=== PATIENT | female | born 1980 | race Caucasian/White ===

== ENCOUNTER 2018-11-26 09:47 | Outpatient (REF) | payer BC, SELFPAY ==
--- NOTE | 2018-11-26 08:45 | PAPFT_PTH ---
PATIENT: Darline Oliver LOC: [facility][id number] AGE/SX: 37/F ROOM: RE11/26/[address]: Emiliana Johnston : 1980 BED: DIS: 11/26/2018 SPEC #: [id number] RECD: 11/27/18 12:57 STATUS: FAY RENabila #: [id number] JOHN PAUL: 11/26/18 08:[address]: Emiliana Johnston DEPT: [facility] Cytology RECD BY: Monisha Mendez ENTERED: 11/27/18 12:57 SP TYPE: PAPFT OTHR DR: Naomi Hidalgo Tissues: 1 - CX/ENDOCX FOR PAP SMEARS Procedures: PAP THIN PREP/UVM Screening HPV DNA PROBE Comments: [id number]
== END 2018-11-26 10:07 ==
LOC: NCHCN 09:47
PROVIDERS: PCP Nurse Practitioner; Visit Provider Nurse Practitioner Family
DX: Z00.00 Encounter for general adult medical examination without abnormal findings (principal); Z12.4 Encounter for screening for malignant neoplasm of cervix; Z01.419 Encounter for gynecological examination (general) (routine) without abnormal findings; Z11.51 Encounter for screening for human papillomavirus (HPV)
CPT/HCPCS: 88142; 87624

== ENCOUNTER 2021-08-07 16:27 | Outpatient (REF) | payer OTHER, SELFPAY ==
[2021-08-09 11:27] LABS: Hepatitis B Surface Ag Negative (Negative)
[2021-08-09 12:06] LABS: Hepatitis C Ab w Rflx HCV PCR Negative (Negative)
[2021-08-09 12:11] LABS: HIV-1/2 Ag & Ab Screen Negative (Negative)
== END 2021-08-07 16:28 | disposition home or self-care (01) ==
LOC: NCHCN 16:27
PROVIDERS: PCP Nurse Practitioner; Visit Provider Family Medicine
DX: Z11.4 Encounter for screening for human immunodeficiency virus [HIV] (principal); Z11.59 Encounter for screening for other viral diseases; Z11.3 Encounter for screening for infections with a predominantly sexual mode of transmission
CPT/HCPCS: 86803; 87340; 87389; 87350

== ENCOUNTER 2021-08-25 13:29 | Outpatient (REF) | payer OTHER, SELFPAY ==
[2021-08-27 13:16] LABS: Chlamydia Result Negative (Negative); GC Result Negative (Negative)
== END 2021-08-25 13:30 | disposition home or self-care (01) ==
LOC: NCHCN 13:29
PROVIDERS: PCP Nurse Practitioner; Visit Provider Nurse Practitioner Family
DX: Z11.3 Encounter for screening for infections with a predominantly sexual mode of transmission (principal)
CPT/HCPCS: 87491; 87591

== ENCOUNTER → 2023-10-22 03:10 | Outpatient (CLI) | payer BC, SELFPAY ==
--- NOTE | 2023-10-22 | DI.MAMMO_ITS ---
Exam(s) MAMMO SCREENING EXAM: MAMMO SCREENING CLINICAL HISTORY: SCREENING, Z12.31 TECHNIQUE: Bilateral full field digital CC and MLO mammographic images were obtained with 3D tomosyn thesis and utilizing computer aided detection (CAD). COMPARISON: This is a baseline examination. FINDINGS: Masses/Architectural Distortion: None seen. Microcalcifications: No suspicious pleomorphic-type are seen. Skin Thickening/Nipple Retraction: None. IMPRESSION: 1. No evidence for malignancy is seen at this time. 2. Unless there is more urgent need, screening mammography is recommended, as per [employer] guidelines. BI-RADS Category 1 - Negative Breast Density - Category C - Heterogeneously dense Breast density category C or D implies that the patient has dense breast tissue. Dense breast tissue is very common and is not abnormal but dense breast tissue can make it harder to find cancer on a ma mmogram. Also, dense breast tissue may increase their breast cancer risk. This information about the result of the mammogram report was provided to the patient to raise their awareness. Use this report when you speak with the patient about their risks for breast cancer, which includes their family hist ory. At that time, you may recommend for more screening tests (Ultrasound or MRI) as they might be us eful based on their risk. A negative radiographic report should not delay biopsy if a dominant or clinically suspicious mass is present. Up to ten percent of cancers are not identified on mammography. A negative report may reinforce clinical impression. Adenosis and dense breasts may obscure an underlying neoplasm. False positive reports average 6 to 10%. Patient will receive a letter notifying them of these results.
== END ==
PROVIDERS: PCP Nurse Practitioner; Visit Provider Nurse Practitioner Family
DX: Z12.31 Encounter for screening mammogram for malignant neoplasm of breast (principal); R92.333 Mammographic heterogeneous density, bilateral breasts
CPT/HCPCS: 77063; 77067

== ENCOUNTER 2024-01-29 15:41 | Outpatient (CLI) | payer BC, SELFPAY ==
--- NOTE | 2024-01-29 13:15 | DI.RAD_ITS ---
Exam(s) XR SHOULDER RT COMPLETE 2+V EXAM: XR SHOULDER RT COMPLETE 2+V CLINICAL HISTORY: RIGHT SHOULDER PAIN. TECHNIQUE: 2D digital imaging was performed. Two views. COMPARISON: No exams were available for comparison FINDINGS: BONES: There is a lucency at the greater tuberosity which could represent a subacute nondisplaced fr acture. It is surrounded by sclerosis. Clinical correlation recommended. No bony destructive lesio n is seen. JOINTS: No dislocation present. The glenohumeral joint space is maintained. The AC joint is not wid ened. There is no significant degenerative changes at the AC joint however there is spurring at the tip of the acromion. SOFT TISSUE: Normal. IMPRESSION: Mild degenerative changes. Question of subacute fracture at the greater tuberosity. DATA REPOSITORY: RADIATION DOSE DELIVERED:
== END 2024-01-29 15:42 | disposition home or self-care (01) ==
LOC: DIORS 15:42
PROVIDERS: PCP Nurse Practitioner Family; Visit Provider Student in an Organized Health Care Education/Training Program
DX: M25.511 Pain in right shoulder (principal)
CPT/HCPCS: 73030

== ENCOUNTER 2024-02-21 00:16 | Outpatient (CLI) | payer BC, SELFPAY ==
--- OUTSIDE RECORDS SUMMARY | 2024-02-21 00:18 | XMS_ITS | Encounter Summary ---
Author Organization [facility] Address [address] [place] [address] Care Team Providers Care Corporate Webmaster Name Role Phone Unavailable Primary Care Provider Unavailabl e Encounter Details Date Type Department Care Team (Late st Contact Info) Description 01/05/2009 Orders Only [facility] - [facility] ([facility]) [address], [place] [id number] Natacha Robledo MD [address] [place] [address] [place] [address] Social History Tobacco Use Types Packs/Day Years Used Date Smoking Tobacco: Never Assessed Sex and Gender Information Value Date Recorded Sex Assigned at Not on file Gender Identity Not on file Sexual Orientation Not on file documented as of this encounter Plan of Treatment Not on file documented as of this encounter Procedures Procedure Name Priority Date/Time Associated Diagnosis Comments SURGICAL PATHOLOGY Routine 01/05/2009 0:00 EDT documented in this encounter Results * SURGICAL PATHOLOGY (01/05/2009 0:00 EDT) Pathology Report: SURGICAL PATHOLOGY REPORT ? Reports generated via electronic interface contain original data; ? however they are lacking the format of the original report. ? Caution should be taken when reading/interpreti ng unformatted reports. ? Name: ? KLAUS, DARLINE ? Accession #: ? [id number] ? : ? 1980 (Age: 28) ??F ? Collect Date: ? 01/05/2009 ? Location: ? [facility] ? Receive Date: ? 01/05/2009 ? Provider: NATACHA NICOLE MD ? Copy to: HAYLEY MIKE CASINO ENFORCEMENT AGENT ? Final Pathologic Diagnosis: ? Endometrium, curettage: ? - Fragments of immature chorionic villi, decidua, and gestational endometrium ?? consistent with ?products of conception. ? Document reviewed and electronically signed by: ? MICHAEL GEORGE MD ? Report ??Date: 01/07/2009 12:48 ? By the signature above, the attending physician certifies that he/she has ? personally conducted a gross and/or microscopic examination of the described ? specimens and rendered or confirmed the above diagnosis. ? Specimen(s) Received: ? Endometrial curettings, POC ? Clinical History: ? demise; missed AB, 8 wk gestation ? Gross Description: ? Received in formalin labelled Darline Oliver and #1 endometrial ? curettings, POC are approximately 100 cc of clotted blood and blood tinged ? mucus admixed with multiple fragments of hemorrhagic spongy and membranous ? tissue. ?? parts are grossly identified. ??Tobacco Drying Machine Operator tissues are ? submitted as (A1) through (A3). ??(AMBER Tessitore)/jesn ? End of Report ? HIREN SAVAGE 01/05/2009 01/05/2009 16: 26 EDT Natacha Robledo MD PATHOLOGY ORDERABLES [facility] [address] [place] [address] documented in this encounter Visit Diagnoses Not on filedocumented in this encounter
--- OUTSIDE RECORDS SUMMARY | 2024-02-21 00:18 | XMS_ITS | Clinical Summary ---
Author Organization [facility] Address 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 CIS - RH Negative CIS - SAB x2 Immunizations Name Administration Dates Next Due Influenza (Novel [id number]) Injectable 08/08/2009 Influenza Vaccine, Whole 03/06/2010,08/08/2009 Rho(D) Immune Globulin (RhoGAM),IM 01/21/2010, Tdap (Adacel, Boostrix) 01/22/2010 Social History Tobacco Use Types Packs/Day Years Used Date Smoking Tobacco: Never Assessed Sex and Gender Information Value Date Recorded Sex Assigned at Not on file Gender Identity Not on file Sexual Orientation Not on file Plan of Treatment Health Maintenance Due Date Last Done Comments HIV screen 12/03/1999 Hepatitis C Screening 12/03/1999 Hepatitis B vaccine (0-59 yrs) (1) 2000 HPV test 12/03/2011 PAP Smear 12/03/2011 Tetanus/Diphtheria/Pertussis Vaccines (2 - Td or Tdap) 01/23/2020 01/22/2010 Breast Cancer Share Decision Needed 2021 Breast Cancer screening 2021 Covid-19 Vaccine ( - 2022-2 4 season) 2024 Influenza (Flu) vaccine (1 o f 1 - Influenza standard series) 01/12/2024 03/06/2010, 08/08/2009, 08/08/2009 Care Teams Metal Stud Framer Relationship Specialty Start Date End Date Ovi Banerjee MD [address] [place] [id number] PCP - General 04/04/10
--- OUTSIDE RECORDS SUMMARY | 2024-02-21 00:18 | XMS_ITS | Encounter Summary ---
Author Organization [facility] Address [address] [place] [address] Care Team Providers Care Clay Dry Press Operator Name Role Phone Unknown, Provider Primary Care Provider [phone] Encounter Details Date Type Department Care Team (Late st Contact Info) Description 07/05/2010 Results Only [facility] - [facility] ([facility]) [address], [place] [address] Hayley Hidalgo FNP [address] [place], [place] [address] Social History Tobacco Use Types Packs/Day Years Used Date Smoking Tobacco: Never Assessed Sex and Gender Information Value Date Recorded Sex Assigned at Not on file Gender Identity Not on file Sexual Orientation Not on file documented as of this encounter Plan of Treatment Not on file documented as of this encounter Procedures Procedure Name Priority Date/Time Associated Diagnosis Comments CYTOPATHOLOGY Routine 07/05/2010 0:00 EST documented in this encounter Results * CYTOPATHOLOGY (07/05/2010 0:00 EST) Pathology Report: CYTOPATHOLOGY REPORT ? Reports generated via electronic interface contain original data; ? however they are lacking the format of the original report. ? Caution should be taken when reading/interpreti ng unformatted reports. ? Name: ? DARLINE OLIVER ? Accession #: ? [id number] ? : ? 1980 (Age: 29) ??F ?Collect Date: ? 07/05/2010 ? Location: ? [facility] ? Receive Date: ? 07/07/2010 ? Provider: ?HAYLEY FREED ? Copy to: ? Specimen/Source: ?Pap Test, Cervix/Endocervix, ThinPrep Imaging System ? with manual evaluation ? Last Menstrual Period: ? 02/05/11 ? Menstrual/Pregnanc y Status: ? Post ? SPECIMEN ADEQUACY ? Satisfactory for Evaluation ? - transformation zone component present ? GENERAL CATEGORIZATION ? Negative for Intraepithelial Lesion or Malignancy ? Document reviewed and electronically signed by: ? Chelsie Mona, CT(ASCP) ? Report Date: ??07/11/2010 15:05 ? End of Report ? HIREN SAVAGE 07/05/2010 07/07/2010 Hayley Hidalgo ENROLLMENT MANAGER PATHOLOGY ORDERABLES Performing Organization Address City/State/[facility] Co de Phone Number HIREN SAVAGE [address] [place] [address] documented in this encounter Visit Diagnoses Not on filedocumented in this encounter Care Teams Clay Dry Press Operator Relationship Specialty Start Date End Date Unknown, Provider, PCP - General 01/07/09 12/01/18 documented as of this encounter
--- OUTSIDE RECORDS SUMMARY | 2024-02-21 00:18 | XMS_ITS | Encounter Summary ---
Author Organization [facility] Address [facility] [place] [address] Care Team Providers Care Senior Business Consultant Name Role Phone Ovi Banerjee MD Primary Care Provider [phone] Encounter Details Date Type Department Care Team (Late st Contact Info) Description 01/20/2010 Orders Only Obstetrics [place] [address] Sophie Holley MD [facility] DR OBSTETRICS & [place] [address] Social History Tobacco Use Types Packs/Day Years Used Date Smoking Tobacco: Never Assessed Sex and Gender Information Value Date Recorded Sex Assigned at Not on file Gender Identity Not on file Sexual Orientation Not on file documented as of this encounter Plan of Treatment Not on file documented as of this encounter Procedures Procedure Name Priority Date/Time Associated Diagnosis Comments SURGICAL PATHOLOGY REPORT Routine 01/20/2010 10:37 AM EDT documented in this encounter Results * Surgical Pathology Report (01/20/2010 10:37 AM EDT) Surgical Pathology Report [id number] ? Location: ; 07; A The signing pathologist has (i) examined the relevant preparation(s) for the specimen(s) and (ii) rendered or confirmed the diagnosis(es). . ?Pathology Surgical Pathology Final Report Clinical Information Specimen Submitted: A - Placenta Clinical History: 37-6/7 weeks twin delivery vertex breech Clinical Diagnosis: Not provided Gross Description Labeled/Fixative: ? Labeled with the patient's name, fresh. Qty/Size/Weight: ?See below. Tissue Description: ? twin placenta. ?? Baby A: ?22.0 x 20.0 x 2.0 cm, 514 g. ?Membranes: ?Peripherally attached, semitranslucent, pink-boudreaux. ?Cord: ? 21.0 x 1.3 cm, three vessels. ? Surface: ?Glistening, boudreaux-purple displaying numerous ?congested vessels. ?Maternal Surface: Appears complete and intact, displaying areas of ?superficial calcifications and a moderate amount of ?peripheral, loosely attached, old, red-brown blood ?clot. ?Parenchyma: ? The specimen is serially sectioned at 0.5-cm ?to 1-cm intervals. ??Sections show a homogeneous, red-brown, spongy parenchyma with no evidence of hemorrhages, infarcts, nor other placental abnormalities. ?? Baby B: ?19.0 x 16.0 x 1.8 cm, 345 g. ?Membranes: ?Peripherally attached membranes are ?semitranslucent , pink-boudreaux. ?Cord: ? 17.0 x 1.5 cm. ??Three vessels. ? Surface: ?Glistening, boudreaux-purple. ?Maternal Surface: Appears complete and intact displaying a minimal ?amount of loosely attached, old, red-brown blood ?clot. ?Parenchyma: ? The specimen is serially sectioned at 0.5-cm ?to 1-cm intervals. ??Sections show a homogeneous, red-brown, spongy parenchyma with no evidence of hemorrhages, infarcts, nor other placental abnormalities. Intervening Membrane: ?? The membranes are avulsed from both surfaces, ?and shared membranes are tentatively identified; ?however, their insertion cannot be readily ?determined. Sections/Processi ng: ?Sections are submitted as follows: ??(1-4) baby A, ?submitted as follows: ??Membranes, cord, surface, maternal surface. ??(5-8) baby B submitted as follows: ??Membranes, cord, surface, maternal surface. ??(9) shared membranes. ??(R9) ??aje/EJR Microscopic Description Slides reviewed, microscopic description not recorded. Diagnosis Third trimester twin placenta, cords and membranes: . Diagnosis Twin A, positive for chorioamnionitis, negative for or funisitis. (see Comment). CR-0 01/25/10 KO 01/25/10 Verified by: ? Rosetta Alcala MD ?Pathologist ?(Electronic Signature) The attending pathologist whose signature appears on this report has reviewed all diagnostic slides and has edited the gross and/or microscopic portion of the report in rendering the final pathologic diagnosis. Comment The membranes are avulsed and cannot be determined. CAROL RUST 01/20/2010 10:3 7 AM EDT Sophie Holley MD PATHOLOGY/CYTOLOGY O RDERABLES CAROL RUST documented in this encounter Visit Diagnoses Not on filedocumented in this encounter Care Teams Senior Business Consultant Relationship Specialty Start Date End Date Ovi Banerjee MD [address] [place] [id number] PCP - General 04/04/10 documented as of this encounter
--- OUTSIDE RECORDS SUMMARY | 2024-02-21 00:18 | XMS_ITS | Encounter Summary ---
Author Organization [facility] Address [address] [place] [address] Care Team Providers Care Service Agent Name Role Phone Kavon Reece MD Primary Care Provider [phone] Encounter Details Date Type Department Care Team (Late st Contact Info) Description 08/08/2021 Lab Requisition [facility] Pathology & Laboratory Medicine - [address] [address] Outr Resulting Lab, Provider Social History Tobacco Use Types Packs/Day Years Used Date Smoking Tobacco: Former Smokeless Tobacco: Never Interpersonal Safety Answer Date Record ed Physically Hurt Never 12/13/2019 Verbally Threaten Not on file 12/13/2019 Sex and Gender Information Value Date Recorded Sex Assigned at Not on file Gender Identity Not on file Sexual Orientation Not on file documented as of this encounter Plan of Treatment Not on file documented as of this encounter Procedures Procedure Name Priority Date/Time Associated Diagnosis Comments HEPATITIS C AB W REFLEX TO HCV RNA BY PCR Routine 08/07/2021 3:40 EDT HEPATITIS B SURFACE ANTIGEN Routine 08/07/2021 3:40 EDT documented in this encounter Results * HEPATITIS B SURFACE ANTIGEN (08/07/2021 3:40 EDT) Hep B Surface Ag Negative Negative 08/09/2021 11:[address] [facility] Blood VENOUS BLOOD / Unknown 08/07/2021 3:40 EDT 08/08/2021 16:48 EDT Provider Outr Resulting Lab CHEMISTRY & BLOOD GAS ORDERABLES Performing Organization Address City/[facility] Co de Phone Number [facility] [address] [place] [address] * HEPATITIS C AB W REFLEX TO HCV RNA BY PCR (08/07/2021 3:40 EDT) Hep C Antibody Negative Negative 08/09/2021 12:[address] [facility] Blood VENOUS BLOOD / Unknown 08/07/2021 3:40 EDT 08/08/2021 16:48 EDT Provider Outr Resulting Lab CHEMISTRY & BLOOD GAS ORDERABLES Performing Organization Address [facility] Co de Phone Number [facility] [address] [place] [address] documented in this encounter Visit Diagnoses Not on filedocumented in this encounter Care Teams Service Agent Relationship Specialty Start Date End Date Kavon Reece MD [address] [place] [address] PCP - General 12/02/18 documented as of this encounter
--- OUTSIDE RECORDS SUMMARY | 2024-02-21 00:18 | XMS_ITS | Encounter Summary ---
Author Organization [facility] Address [address] [place] [address] Care Team Providers Care Insurance Territory Manager Name Role Phone Unknown, Provider Primary Care Provider Encounter Details Date Type Department Care Team (Late st Contact Info) Description 03/11/2009 Orders Only [facility] - [facility] [address] [place] [address] Elli Christensen MD [address] [facility] [address] [place] [id number] Social History Tobacco Use Types Packs/Day Years Used Date Smoking Tobacco: Never Assessed Sex and Gender Information Value Date Recorded Sex Assigned at Not on file Gender Identity Not on file Sexual Orientation Not on file documented as of this encounter Plan of Treatment Not on file documented as of this encounter Procedures Procedure Name Priority Date/Time Associated Diagnosis Comments CYTOGENETICS Routine 03/11/2009 0:00 EDT documented in this encounter Results * CYTOGENETICS (03/11/2009 0:00 EDT) Pathology Report: CYTOGENETICS REPORT ? Reports generated via electronic interface contain original data; ? however they are lacking the format of the original report. ? Caution should be taken when reading/interpreti ng unformatted reports. ? Name: ? DARLINE OLIVER ? Accession #: ? [id number] ? : ? 1980 (Age: 28) ??F ?Collect Date: ? 03/11/2009 ? Location: ? [facility] ? Receive Date: ? 03/12/2009 ? Provider: ? ELLI A KOLE MD ? Copy to: ?CHEPE LIN MD ? INTERPRETATION: ? Normal female karyotype ? Document reviewed and electronically signed by: ? CHEPE LIN MD ? Report Date: ??04/05/2009 11:41 ? CLINICAL HISTORY: ? Habitual aborter without current ? clinical diagnosis code: ??629.81 ? SPECIMEN: ? Peripheral Blood ? TEST PERFORMED: ? G-banded Karyotype ? REPORT: ? No. Cells Counted: ??20 ? No. Cells Analyzed: ??9 ? No. Cells Karyotyped: ??5 ? Band Resolution: ??550 ? KARYOTYPE: ? 46,XX ? End of Report ? [facility] 03/11/2009 03/12/2009 12: 10 EDT Elli Christensen MD PATHOLOGY ORDERABLES Performing Organization Address City/State/[facility] Co de Phone Number [facility] [address] [place] [address] documented in this encounter Visit Diagnoses Not on filedocumented in this encounter Care Teams Insurance Territory Manager Relationship Specialty Start Date End Date Unknown, Provider, PCP - General 01/07/09 12/01/18 documented as of this encounter
--- OUTSIDE RECORDS SUMMARY | 2024-02-21 00:18 | XMS_ITS | Encounter Summary ---
Author Organization [facility] Address [address] [place] [address] Care Team Providers Care Automotive Tire Testing Supervisor Name Role Phone Unknown, Provider Primary Care Provider Encounter Details Date Type Department Care Team (Late st Contact Info) Description 11/26/2018 Results Only [facility] [phone] Batool Johnston FNP [address] [facility] [address] [place] [address] Social History Tobacco Use Types Packs/Day Years Used Date Smoking Tobacco: Never Assessed Sex and Gender Information Value Date Recorded Sex Assigned at Not on file Gender Identity Not on file Sexual Orientation Not on file documented as of this encounter Plan of Treatment Not on file documented as of this encounter Procedures Procedure Name Priority Date/Time Associated Diagnosis Comments PAP TEST- RESULT ONLY Routine 11/26/2018 0:00 EDT documented in this encounter Results * PAP TEST- RESULT ONLY (11/26/2018 0:00 EDT) Pathology Report: CYTOPATHOLOGY REPORT Reports generated via electronic interface contain original data; however they are lacking the format of the original report. Caution should be taken when reading/interpreti ng unformatted reports. Name: ? DARLINE OLIVER ? Accession #: ? [id number] ? : ? 1980 (Age: 37) ??F ?Collect Date: ? 11/26/2018 ? Location: ? [facility] ? Receive Date: ? 11/28/2018 ? Provider: BATOOL FREED Copy to: ? Final Report SPECIMEN ADEQUACY ? Satisfactory for Evaluation - transformation zone component present GENERAL CATEGORIZATION ? Negative for Intraepithelial Lesion or Malignancy ?? Last Menstrual Period: 11/14/18 Other: Additional clinical information: Z00.00 Z12.4 Z01.419 Specimen/Source: ??Pap Test, Cervix/Endocervix, ThinPrep Imaging System with manual evaluation Document reviewed and electronically signed by: ? Valeri Teran, CT(ASCP)(IAC) ? Report ??Date: 12/01/2018 13:15 HPV with Pap Test ? Date Ordered: ? 12/22/2018 ? Status: ?? Signed Out ?Date Complete: ? 12/23/2018 ? By: ??System Interface ? Date Reported: ? 12/23/2018 ? Interpretation RESULT: Negative for HPV. No E6 or E7 mRNA is detected from HPV types 16,18,31,33,35, 39,45,51,52,56,58, 59,66, and 68 by access services assistant mediated amplification. Comments Document reviewed and electronically signed by: ? System Interface ? Report date: 12/23/2018 By the signature above, the attending physician certifies that he/she has personally conducted a gross and/or microscopic examination of the described specimens and rendered or confirmed the above diagnosis. End of Report [facility] 11/26/2018 11/28/2018 Batool FREED PATHOLOGY ORDERABLES [facility] [address] [place] [address] documented in this encounter Visit Diagnoses Not on filedocumented in this encounter Care Teams Automotive Tire Testing Supervisor Relationship Specialty Start Date End Date Unknown, Provider, PCP - General 01/07/09 12/01/18 documented as of this encounter
--- OUTSIDE RECORDS SUMMARY | 2024-02-21 00:18 | XMS_ITS | Encounter Summary ---
Author Organization [facility] Address [address] [place] [address] Care Team Providers Care Home Stereo Equipment Installer Name Role Phone Kavon Reece MD Primary Care Provider [phone] Reason for Visit * Reason Comments New Patient Visit No fm h/o MM Skin Exam FBSE, Spot on right arm * Consult (Routine) - Closed Specialty Diagnoses / Procedures [facility] Referred To Contact Dermatology Diagnoses Skin lesions Emiliana Johnston FNP [address] [facility] [address] [place] [address] [facility] Dermatology [address] [place] [address] Referral ID Status Reason Start Date Expiration Date Visits Re quested Visits Authorized [id number] Closed 1 1 Encounter Details Date Type Department Care Team (Late st Contact Info) Description 12/09/2018 13:20 EDT Office Visit [facility] Dermatology 3rd [address] [id number] Kristen Leon PA-C [address] [facility], [facility], [address] [place] [address] Sun-damaged skin (Primary Dx); Atypical nevi Social History Tobacco Use Types Packs/Day Years Used Date Smoking Tobacco: Former Smokeless Tobacco: Never Sex and Gender Information Value Date Recorded Sex Assigned at Not on file Gender Identity Not on file Sexual Orientation Not on file documented as of this encounter Patient Instructions * Patient Instructions* Kristen Hunt PA-C - 12/09/2018 13:20 EDT SUN PROTECTION AND SUNSCREENS Repeated and prolonged exposure to sunlight greatly increases your risk of all types of skin cancer, including basal cell carcinoma, squamous cell carcinoma and melanoma. In addition, chronic sun exposure is the major cause of wrinkles, spotty, unhealthy appearing skin. Here are some guidelines will help to keep your skin and eyes safe. ?? Avoid the hot mid-day sun which happens from 10 am-4 pm. Try to schedule your outdoor activitiesfor dent remover or early evening. ?? Make clothing a regular part of protection. Keep your shirt on- wear long sleeves and a wide brimmed hat. ?? Be especially careful when on the water, snow or sand as sunlight is reflected upwards from these surfaces. ?? Don???t forget your eyes! Wear sunglasses- Sun exposure increases your risk for cataracts. ?? Don't forget your lips! Use chap stick with SPF in it! Lips can get burnt and grown skin cancerstoo. ?? Make sure your children practice good sun protection. Early sun damage increases their risk of developing skin cancer. ?? Wear a sunscreen. We recommend using a sunscreen with both UVA and UVB protection and a SPF of at least 30. If you sunburn more easily or are in more intense sun, you will need a higher SPF. A ???waterproof?? sunscreen is usually good for about 4 hours, even if you???re swimming. A ???water resistant?? sunscreen should be reapplied every 2 hours and after swimming. Remember to put sunscreen on your ears and lips. There are many lip balms available with sunscreen. WHAT DOES SUNSCREEN DO? Sunlight is made up of different wavelengths, some of which we can see as the various colors of therainbow, or ???visible?? light. UVA and UVB are invisible wavelengths, which penetrate into the skin and in excess amounts, cause injury. When the injury is severe, skin cells and become inflamed and we see sunburn. UVB causes sunburn more quickly than UVA and most sunscreens are targeted towards this wavelength. Tanning while wearing sunscreen may mean that primarily UVA light is reaching the skin. This is the same UVA light that is used in tanning beds and is responsible for causing wrinkles, brown spots andpossibly melanoma. For this reason, we recommend that you don???t use tanning beds and that you usesunscreen that is broad spectrum which means it protects you from both UVA and UVB protection. Most sunscreen ingredients are good at blocking UVB light. The only ingredients that also do a goodjob blocking UVA light are listed below. Make sure your sunscreen contains one of these ingredients. CAUTION: in some people Parasol may cause staining of white clothing. ?? Parasol (avobenzone) ?? Zinc Oxide ?? Titanium Dioxide WHAT ARE THE TWO TYPES OF SUNSCREEN? Chemical blockers: oxybenzone, avobenzone, octisalate, octocrylene, homosalate and octinoxate Physical blockers: zinc oxide and/or titanium dioxide SOME RECOMMENDED SUNSCREEN BRANDS Chemical Sunblock: ?? Neutrogena Ultra Sheer Dry Touch - SPF 30, 45, 55, 70 and 85 ?? Aveeno (same sunscreen as in Neutrogena) ?? Coppertone Sport - SPF 30 and 50 Sweatproof ?? La Stacia-Posay Anthelios - SPF 40 ?? NO-AD Sunblock- SPF 30 Physical sunblock: (good for sensitive skin) ?? Joshua FALCON Sunscreens ?? Blue Lizard sensitive- SPF 30 ?? Coppertone Spectra- SPF 30 and 50 ?? Neutrogena pure and free baby sensitive Gel Formulations: (good for hair bearing skin) ?? Bullfrog - SPF 36 ???Warrens?? and ???Sweatproof? Alcohol based - goes on quickly and good for skin with hair Recommended brands for specific types of skin: For the environmentally friendly: Blrziv0Ozp For dry skin: Joshua FALCON UV Elements For ultra-sensitive skin: Vanicream free and clear sunscreen For Kids or ultrasensitive skin: Titanium dioxide and zinc oxide--Vanicream free and clear sunscreen, Lacie unscented or Blue Lizard Even more important are hats and sun protective clothing with UPF. You can find these clothes and accessories at: www.sunprecautions.SlideBatch www.coolibar.com www.Emergent Labs.SlideBatch www.SquirroerContent Circles.com For more information about sun protection and skin cancer: www.skincancer.org documented in this encounter Progress Notes * Michoacano Hroton - 12/09/2018 1320 EDT Review of Systems Constitutional: Negative for fatigue, fever and unexpected weight change. HENT: Negative for mouth sores. Eyes: Negative for pain. Respiratory: Negative for cough and shortness of breath. Cardiovascular: Negative for chest pain and palpitations. Gastrointestinal: Negative for abdominal pain, blood in stool, constipation, diarrhea, nausea and vomiting. Genitourinary: Negative for dysuria, frequency and hematuria. Musculoskeletal: Negative for myalgias, joint swelling, arthralgias and muscle stiffness in the morning. Skin: Negative for rash. Neurological: Negative for numbness and headaches. Endo/Heme/Allergies: Does not bruise/bleed easily. Psychiatric/Behavioral: Negative for sleep disturbance. The patient is not nervous/anxious. Michoacano Horton 12/09/2018 13:28 * Kristen Hunt PA-C - 12/09/2018 1320 EDT Dermatology Outpatient New Patient Visit Note Chief Complaint Patient presents with ??? New Patient Visit No fm h/o MM ??? Skin Exam FBSE, Spot on right arm Last Dermatology office visit: NPV SUBJECTIVE Ms. Oliver is a 38 y.o. female who presents for a routine skin exam. She has multiple moles but denies any specific lesions of concern. Her PCP expressed concern of a mole on her right upper arm because it looked different. The patient is diligent about sunscreen and wears her children's SPF. Sheused tanning beds when she was younger but denies current use. The patient denies any personal history of non melanoma or melanoma skin cancer. The patient denies any family history of non melanoma or melanoma skin cancer. The patient works indoors. They were referred to Dermatology by LOURDES Waters. For full Medical, Surgical, Family, and Social histories, please see the History section of this encounter in the electronic chart which I have personally reviewed. For Review of Systems, Medications and Allergies, please see those sections of this encounter in the electronic chart which I have also reviewed. OBJECTIVE VS: There were no vitals taken for this visit. Ms. Oliver is healthy and in no acute distress female, with a normal affect, sitting on the examination table. She has Lane type II skin. Cutaneous full body examination including the hair, scalp, face, eyelids, lips, neck, chest, back, abdomen, all four extremities, hands, feet, digits and nails was performed. The examination was normal with the addition of the following comments: - right upper arm: 6x5 mm medium brown macule with a medium brown papule within (egg in frying padilla appearance) - face, trunk and extremities: 2-6 mm, light to dark brown macules and fleshy papules with mildly atypical pigment networks - photo-distribution: diffuse actinic injury with a boudreaux ASSESSMENT/PLAN 1. Sun-damaged skin - There are no lesions concerning for non melanoma or melanoma skin cancer. The nature of sun-induced photo-aging and skin cancers is discussed. Sun avoidance, protective clothing, and the use of 30-SPF sunscreens is advised. Observe closely for skin damage/changes, and call if such occurs. 2. Clinically appearing, mildly atypical nevi - Patient reassured of benign nature of nevi. The ABCDE's of melanoma were reviewed (asymmetry, border, color, diameter, evolution). Also reviewed signs and symptoms of non-melanoma skin cancers. Advised to call office with any questions or concerns. Reviewed the ugly duckling sign and the importance of monthly self-surveilance. She will f/u in 2-3 years for FBSE as planned or in the interim should problems arise. The attending physician was available for this visit. Kristen Hunt PA-C, 12/09/2018, 13:35 documented in this encounter Plan of Treatment Not on file documented as of this encounter Visit Diagnoses Diagnosis Sun-damaged skin- Primary Other dermatitis due to solar radiation Atypical nevi Benign neoplasm of skin, site unspecified documented in this encounter Historical Medications * This list may reflect changes made after this encounter. Medication Sig Dispensed Refills Start Date End Date UNABLE TO FIND Take 1 Tab by mouth daily. Med Name: Control - Unsure of type added in this encounter Care Teams Home Stereo Equipment Installer Relationship Specialty Start Date End Date Kavon Reece MD [address] [place] [address] PCP - General 12/02/18 documented as of this encounter
--- OUTSIDE RECORDS SUMMARY | 2024-02-21 00:18 | XMS_ITS | Encounter Summary ---
Author Organization [facility] Address [address] [place] [address] Care Team Providers Care Tunnel Elastic Operator Zigzag Name Role Phone Kavon Reece MD Primary Care Provider [phone] Encounter Details Date Type Department Care Team (Late st Contact Info) Description 08/26/2021 Lab Requisition [facility] Pathology & Laboratory Medicine - [address] [address] Outr Resulting Lab, Provider Social History Tobacco [...] Procedure Name Priority Date/Time Associated Diagnosis Comments CHLAMYDIA/N. GONORRHOEAE AMPLIFIED NUCLEIC ACID Routine 08/25/2021 10:45 EDT documented in this encounter Results * CHLAMYDIA/N. GONORRHOEAE AMPLIFIED RNA (08/25/2021 10:45 EDT) Neisseria gonorrhoeae Result Negative Negative 08/27/2021 13:10 EDT [facility] Chlamydia trachomatis Result Negative Negative 08/27/2021 13:10 EDT [facility] Swab ENTIRE ENDOCERVIX / Unknown 08/25/2021 10:45 EDT 08/26/2021 22:19 EDT Provider Outr Resulting Lab MICROBIOLOGY - GENERAL ORDERABLES [facility] [address] [place] [address] documented in this encounter Visit Diagnoses Not on filedocumented in this encounter Care Teams Tunnel Elastic Operator Zigzag Relationship Specialty Start Date End Date Kavon Reece MD [address] [place], [place] [id number] PCP - General 12/02/18 documented as of this encounter
--- OUTSIDE RECORDS SUMMARY | 2024-02-21 00:18 | XMS_ITS | Encounter Summary ---
Author Organization [facility] Address [address] [place] [address] Care Team Providers Care Client Account Representative Name Role Phone Unknown, Provider Primary Care Provider Encounter Details Date Type Department Care Team (Latest Contact Info) Description 03/11/2009 11:42 EDT - 03/11/2009 11:43 EDT Hospital Encounter [facility] - Other [address] [place] [address] Elli Christensen MD [address] [facility] [address] [place] [address] Discharge Disposition: Home or Self Care Social History Tobacco Use Types Packs/Day Years Used Date Smoking Tobacco: Never Assessed Sex and Gender Information Value Date Recorded Sex Assigned at Not on file Gender Identity Not on file Sexual Orientation Not on file documented as of this encounter Discharge Disposition Disposition Code Departure Means Destination Home or Self Care documented in this encounter Plan of Treatment Not on file documented as of this encounter Visit Diagnoses Not on filedocumented in this encounter Care Teams Client Account Representative Relationship Specialty Start Date End Date Unknown, Provider, PCP - General 01/07/09 12/01/18 documented as of this encounter
--- OUTSIDE RECORDS SUMMARY | 2024-02-21 00:18 | XMS_ITS | Encounter Summary ---
Author Organization [facility] Address [address] [place] [address] Care Team Providers Care Bulldogger Name Role Phone Unavailable Primary Care Provider Unavailabl e Encounter Details Date Type Department Care Team (Late st Contact Info) Description 12/22/2008 Orders Only [facility] Laboratory Services - [facility] ([facility] [address] [place], [place] [address] Chey Mcgee [place], [place] [id number] Social History Tobacco Use Types Packs/Day Years Used Date Smoking Tobacco: Never Assessed Sex and Gender Information Value Date Recorded Sex Assigned at Not on file Gender Identity Not on file Sexual Orientation Not on file documented as of this encounter Plan of Treatment Not on file documented as of this encounter Procedures Procedure Name Priority Date/Time Associated Diagnosis Comments CYTOPATHOLOGY Routine 12/22/2008 0:00 EDT documented in this encounter Results * CYTOPATHOLOGY (12/22/2008 0:00 EDT) Pathology Report: CYTOPATHOLOGY REPORT ? Reports generated via electronic interface contain original data; ? however they are lacking the format of the original report. ? Caution should be taken when reading/interpreti ng unformatted reports. ? Name: ? DARLINE OLIVER ? Accession #: ? [id number] ? : ? 1980 (Age: 28) ??F ?Collect Date: ? 12/22/2008 ? Location: ? [facility] ? Receive Date: ? 12/23/2008 ? Provider: ?CHEY MCGEE CNM ? Copy to: ? Specimen/Source: ?Pap Test, Cervix/Endocervix, ThinPrep Imaging System ? with manual evaluation ? Last Menstrual Period: ? 6/3/09 ? Menstrual/Pregnanc y Status: ? Other: ? HPVA - HPV testing requested if ASC-US on the current ThinPrep Pap test. ? SPECIMEN ADEQUACY ? Satisfactory for Evaluation ? - transformation zone component present ? - scant squamous epithelial component ? GENERAL CATEGORIZATION ? Negative for Intraepithelial Lesion or Malignancy ? Document reviewed and electronically signed by: ? Chelsie [place], [place](ASCP) ? Report Date: ??12/28/2008 11:42 ? End of Report ? HIREN SAVAGE 12/22/2008 12/23/2008 Chey Mcgee CNM PATHOLOGY ORDERABLES [facility] [address] [place] [address] documented in this encounter Visit Diagnoses Not on filedocumented in this encounter
--- OUTSIDE RECORDS SUMMARY | 2024-02-21 00:18 | XMS_ITS | Encounter Summary ---
Author Organization [facility] Address [address] [place] [address] Care Team Providers Care Spray Worker Name Role Phone Unknown, Provider Primary Care Provider [phone] Encounter Details Date Type Department Care Team (Late st Contact Info) Description 11/04/2007 Results Only [facility] - [facility] conversion [address] [place] [address] Marla Wheeler MD [address] [place] [address] [place] [id number] Social History Tobacco Use Types Packs/Day Years Used Date Smoking Tobacco: Never Assessed Sex and Gender Information Value Date Recorded Sex Assigned at Not on file Gender Identity Not on file Sexual Orientation Not on file documented as of this encounter Plan of Treatment Not on file documented as of this encounter Procedures Procedure Name Priority Date/Time Associated Diagnosis Comments CYTOPATHOLOGY Routine 11/04/2007 0:00 EDT documented in this encounter Results * CYTOPATHOLOGY (11/04/2007 0:00 EDT) Pathology Report: CYTOPATHOLOGY REPORT Reports generated via electronic interface contain original data; however they are lacking the format of the original report. Caution should be taken when reading/interpreti ng unformatted reports. Name: ? DARLINE OLIVER ? Accession #: ? [id number] : ? 1980 (Age: 26) ??F ?Collect Date: ? 11/04/2007 Location: ? [facility] ? Receive Date: ? 11/05/2007 Provider: ?MARLA WHEELER MD Copy to: ? Specimen/Source: ?ThinPrep Pap Test, Cervix/Endocervix, processed on ExactFlat ThinPrep Imaging System, with manual evaluation Last Menstrual Period: ? 10/15/07 Other: ? HPVA - HPV testing requested if ASC-US on the current ThinPrep Pap test. ? SPECIMEN ADEQUACY ? Unsatisfactory for Evaluation, - insufficient numbers of squamous epithelial cells (less than 10% of expected cellularity) - sample preparation compromised by excessive blood GENERAL CATEGORIZATION ? Specimen processed and examined, but unsatisfactory for evaluation of epithelial abnormality. Recommend repeat Pap test or further follow up, as clinically indicated. ? Document reviewed and electronically signed by: ? LETI Mcdonald(ASCP) ? Report Date: ??11/10/2007 09:15 End of Report [facility] 11/04/2007 11/05/2007 Marla Wheeler MD PATHOLOGY ORDERABLES [facility] [address] [place] [address] documented in this encounter Visit Diagnoses Not on filedocumented in this encounter Care Teams Spray Worker Relationship Specialty Start Date End Date Unknown, Provider, PCP - General 01/07/09 12/01/18 documented as of this encounter
--- OUTSIDE RECORDS SUMMARY | 2024-02-21 00:18 | XMS_ITS | Referral Summary ---
Author Organization [facility] Address [address] [place] [address] Care Team Providers Care Golf Ball Winder Name Role Phone Kavon Reece MD Primary Care Provider [phone] Allergies No known active allergies Medications Medication Sig Dispensed Refills Start Date End Date Status UNABLE TO FIND Take 1 Tab by mouth daily. Med Name: Control - Unsure of type Active Active Problems No known active problems Social History Tobacco Use Types Packs/Day Years Used Date Smoking Tobacco: Former Smokeless Tobacco: Never Interpersonal Safety Answer Date Record ed Physically Hurt Never 12/13/2019 Verbally Threaten Not on file 12/13/2019 Sex and Gender Information Value Date Recorded Sex Assigned at Not on file Gender Identity Not on file Sexual Orientation Not on file Plan of Treatment Not on file Procedures Procedure Name Priority Date/Time Associated Diagnosis Comments HEPATITIS C AB W REFLEX TO HCV RNA BY PCR Routine 08/07/2021 3:40 EDT from Last 3 Months or Most Recently Relevant to Health Maintenance Results * HEPATITIS C AB W REFLEX TO HCV RNA BY PCR (08/07/2021 3:40 EDT) Hep C Antibody Negative Negative 08/09/2021 12:02 EDT [facility] Blood VENOUS BLOOD / Unknown 08/07/2021 3:40 EDT 08/08/2021 16:48 EDT Provider Outr Resulting Lab CHEMISTRY & BLOOD GAS ORDERABLES [facility] [address] [place] [address] from Last 3 Months or Most Recently Relevant to Health Maintenance Care Teams Golf Ball Winder Relationship Specialty Start Date End Date Kavon Reece MD [address] [place], [place] [phone] PCP - General 12/02/18
--- OUTSIDE RECORDS SUMMARY | 2024-02-21 00:18 | XMS_ITS | Encounter Summary ---
Author Organization [facility] Address [address] [place] [address] Care Team Providers Care Cyber Engineer Name Role Phone Unavailable Primary Care Provider Unavailabl e Encounter Details Date Type Department Care Team (Late st Contact Info) Description 12/17/2007 Before PRISM Converted Visit (Maple) [facility] - Maple conversion [address] [place] [address] Natacha Robledo MD [address] [place] [address] [place] [address] Social History Tobacco Use Types Packs/Day Years Used Date Smoking Tobacco: Never Assessed Sex and Gender Information Value Date Recorded Sex Assigned at Not on file Gender Identity Not on file Sexual Orientation Not on file documented as of this encounter Plan of Treatment Not on file documented as of this encounter Procedures Procedure Name Priority Date/Time Associated Diagnosis Comments CYTOPATHOLOGY Routine 12/17/2007 0:00 EDT documented in this encounter Results * CYTOPATHOLOGY (12/17/2007 0:00 EDT) Pathology Report: CYTOPATHOLOGY REPORT ? Reports generated via electronic interface contain original data; ? however they are lacking the format of the original report. ? Caution should be taken when reading/interpreti ng unformatted reports. ? Name: ? DARLINE OLIVER ? Accession #: ? [id number] ? : ? 1980 (Age: 27) ??F ?Collect Date: ? 12/17/2007 ? Location: ? [facility] ? Receive Date: ? 12/18/2007 ? Provider: ?NATACHA ROBLEDO MD ? Copy to: ? Specimen/Source: ?ThinPrep Pap Test, Cervix/Endocervix, processed on Cytyc ThinPrep Imaging System, with manual evaluation ? Last Menstrual Period: ? 7/16/08 ? SPECIMEN ADEQUACY ? Satisfactory for Evaluation ? - transformation zone component absent ? GENERAL CATEGORIZATION ? Negative for Intraepithelial Lesion or Malignancy ? Document reviewed and electronically signed by: ? Dhiraj Fitch, [place](ASCP) ? Report Date: ??12/22/2007 13:15 ? End of Report ? HIREN SAVAGE 12/17/2007 12/18/2007 Natacha Robledo MD PATHOLOGY ORDERABLES Performing Organization Address City/State/[facility] Co de Phone Number [facility] [address] [place] [address] documented in this encounter Visit Diagnoses Not on filedocumented in this encounter
--- OUTSIDE RECORDS SUMMARY | 2024-02-21 00:18 | XMS_ITS | Clinical Summary ---
Author Organization [facility] Address [address] [place] [address] Care Team Providers Care Account Collector Name Role Phone Kavon Reece MD Primary Care Provider [phone] Allergies No known active allergies Medications Medication [...] on file Sexual Orientation Not on file Obstetrics History Plan of Treatment Health Maintenance Due Date Last Done Comments Hepatitis B Vaccine (1 of 3 - 19+ 3-dose series) 12/02 COVID-19 Vaccine ( season) 2023 Hepatitis C Screen Completed 08/07/2021 Procedures Procedure Name Priority Date/Time Associated Diagnosis Comments HEPATITIS C AB W REFLEX TO HCV RNA BY PCR Routine 08/07/2021 3:40 EDT from Last 3 Months or Most Recently Relevant to Health Maintenance Results * HEPATITIS C AB W REFLEX TO HCV RNA BY PCR (08/07/2021 3:40 EDT) Hep C Antibody Negative Negative 08/09/2021 12:[address] [facility] Blood VENOUS BLOOD / Unknown 08/07/2021 3:40 EDT 08/08/2021 16:48 EDT Provider Outr Resulting Lab CHEMISTRY & BLOOD GAS ORDERABLES [facility] [address] [place] [address] from Last 3 Months or Most Recently Relevant to Health Maintenance Care Teams Account Collector Relationship Specialty Start Date End Date Kavon Reece MD [address] [place], [place] [phone] PCP - General 12/02/18
--- OUTSIDE RECORDS SUMMARY | 2024-02-21 00:18 | XMS_ITS | Encounter Summary ---
Author Organization [facility] Address [address] [place] [address] Care Team Providers Care Ad Writer Name Role Phone Kavon Reece MD Primary Care Provider Encounter Details Date Type Department Care Team (Late st Contact Info) Description 08/08/2021 Lab Requisition [facility] Pathology & Laboratory Medicine - [facility] [address] [place] [address] Outr Resulting Lab, Provider Social History Tobacco [...] Procedure Name Priority Date/Time Associated Diagnosis Comments HIV 1/2 ANTIGEN AND ANTIBODY, 4TH GENERATION Routine 08/07/2021 3:40 EDT documented in this encounter Results * HIV 1/2 ANTIGEN AND ANTIBODY, 4TH GENERATION (08/07/2021 3:40 EDT) HIV 1 and 2 Antibody/p24 Antigen, 4th Generation Negative Negative 08/09/2021 12:07 EDT [facility] Comment:If acute HIV-1 infec tion is suspected in a high risk patient, submit plasma specimen for HIV-1 RNA quantitation test. Blood VENOUS BLOOD / Unknown 08/07/2021 3:40 EDT 08/08/2021 16:48 EDT Narrative [facility] - 08/09/2021 12:07 EDT Fourth Generation assay performed on the Siem[employer] Grid [employer]aur XPT. Provider Outr Resulting Lab IMMUNOLOGY A ND SEROLOGY ORDERABLES Performing Organization Address City/State/[facility] Co de Phone Number [facility] [address] [place] [address] documented in this encounter Visit Diagnoses Not on filedocumented in this encounter Care Teams Ad Writer Relationship Specialty Start Date End Date Kavon Reece MD [address] [place], [place] [id number] PCP - General 12/02/18 documented as of this encounter
--- NOTE | 2024-02-21 07:00 | DI.MRI_ITS ---
Exam(s) MR UPPER JOINT RT WO EXAM: MR UPPER JOINT RT WO CLINICAL HISTORY: BICEPS RUPTURE,s46.211a TECHNIQUE: Multiplanar multisequence MRI of the shoulder was performed. COMPARISON: CR XR SHOULDER RT COMPLETE 2+V from 01/29/2024 FINDINGS: MARROW:There is no evidence of fracture, Hill-Sachs deformity, nor ominous osseous lesions. There is the T1 visible hypointense line in the greater tuberosity with mild surrounding bone edema. This may represent a very subtle nondisplaced healing nonacute appearing fracture. GLENOHUMERAL JOINT: No joint effusion nor obvious loose intra-articular bodies. No chondral defects. No osteophytes. No degenerative subarticular cysts. No evidence of capsular tear. The inferior gle nohumeral ligament is intact. ROTATOR CUFF MECHANISM: AC JOINT/ACROMIUM: There are no significant degenerative changes in the AC joint.. There is no evidence of os acromiale. Supraspinatus: There is a small focus of signal abnormality at the foot pad insertion site of the sup raspinatus upon the greater tuberosity but no high-grade tear. There is some tendinosis signal in th e supraspinatus tendon but no high-grade tear and no muscle atrophy evident. There is, however, sign ificant fluid in the overlying subacromial bursa evident Infraspinatus: Intact. No evidence of tear nor muscle atrophy. Teres Minor: Intact. No evidence of tear nor muscle atrophy. Subscapularis/anterior cuff: Intact. No abnormal signal at the level of the multipennate insertional fibers. No significant tear nor atrophy. BICEPS TENDON: Exhibits normal position within the intertubercular groove. No evidence of tear. No tenosynovitis. LABRUM: There is no abnormal signal in the superior labrum posterior to the biceps insertion site. T here are no labral tears identified and no evidence of paralabral cyst. QUADRILATERAL SPACE: No evidence of mass in the region of the axillary nerve and dorsal circumflex hu meral vessels. Visualized triceps muscle at this level appears unremarkable. IMPRESSION: 1. There is tendinosis signal within the supraspinatus tendon as well as small focal area of signal a bnormality in the tendon at the foot pad insertional aspect. This does not appear to traverse the en tire thickness of the tendon. There is no tendon retraction. There is however, definite fluid withi n the overlying subacromial-subdeltoid bursa (no significant impingement evident in the subacromial a rch). 2. There is mild bone edema and subtle T1 findings at the level the greater tuberosity. Correlation with any recent direct trauma recommended. 3. No evidence of biceps tendon tear nor labral tear. 4. Glenohumeral joint appears unremarkable and there is no evidence of a joint effusion nor loose in tra-articular bodies. DATA REPOSITORY:
== END 2024-02-21 00:36 ==
LOC: DI 00:16
PROVIDERS: PCP Nurse Practitioner Family; Visit Provider Student in an Organized Health Care Education/Training Program
DX: S46.211A Strain of muscle, fascia and tendon of other parts of biceps, right arm, initial encounter (principal); X58.XXXA Exposure to other specified factors, initial encounter
CPT/HCPCS: 73221

== ENCOUNTER 2024-07-30 11:17 | Outpatient (REF) | payer BC, SELFPAY ==
--- NOTE | 2024-07-30 13:45 | PAPFT_PTH ---
PATIENT: Darline Oliver LOC: [facility]#:[id number] AGE/SX: 43/F ROOM: RE07/30/[address]: Rita Walton : 1980 BED: DIS: 07/30/2024 SPEC #: [id number] RECD: 07/31/24 12:54 STATUS: FAY RENabila #: [id number] JOHN PAUL: 07/30/24 13:[address]: Rita Walton DEPT: [facility] Cytology RECD BY: Monisha Mendez Tissues: 1 - CX/ENDOCX FOR PAP SMEARS Procedures: PAP THIN PREP/[facility] Screening HPV DNA PROBE Comments: [id number] (HVP 16 & 18/45)
[2024-07-30 15:00] LABS: Hemoglobin A1C 4.9 % (<5.7)
[2024-07-30 15:04] LABS: Calculated LDL 81 mg/dL (<100); Cholesterol 193 mg/dL (<200); HDL Cholesterol 100 mg/dL (>or=50); TSH (W/Ref FT4) 1.67 uIU/mL (0.36-3.74); Triglyceride 61 mg/dL (<150)
== END 2024-07-30 11:18 | disposition home or self-care (01) ==
LOC: NCHCN 11:17
PROVIDERS: PCP Nurse Practitioner Family; Visit Provider Nurse Practitioner Family
DX: Z00.00 Encounter for general adult medical examination without abnormal findings (principal)
CPT/HCPCS: 80061; 88142; 83036; 84443; 87624

== ENCOUNTER 2024-08-12 14:43 | Outpatient (CLI) | payer BC, SELFPAY ==
--- NOTE | 2024-08-12 08:15 | DI.RAD_ITS ---
Exam(s) XR KNEE LT 3V AP,LAT,FADY EXAM: XR KNEE LT 3V AP,LAT,FADY CLINICAL HISTORY: LEFT KNEE PAIN. TECHNIQUE: 2D digital imaging was performed of the left knee. Three images were obtained. AP, late ral and PA tunnel views were obtained. COMPARISON: No exams were available for comparison FINDINGS: BONES: No acute fracture is present. No bony destructive lesion is seen. JOINTS: The knee is normally aligned. No joint effusion is seen. No loose body. SOFT TISSUE: Normal. IMPRESSION: Normal radiographs of the left knee. DATA REPOSITORY: RADIATION DOSE DELIVERED:
== END 2024-08-12 14:44 | disposition home or self-care (01) ==
LOC: DIORS 14:54
PROVIDERS: PCP Nurse Practitioner Family; Visit Provider Student in an Organized Health Care Education/Training Program
DX: M25.562 Pain in left knee (principal)
CPT/HCPCS: 73562

== ENCOUNTER 2024-08-20 01:06 | Outpatient (CLI) | payer BC, SELFPAY ==
--- NOTE | 2024-08-20 08:45 | DI.MRI_ITS ---
Exam(s) MR LOWER JOINT LT WO EXAM: MR LOWER JOINT LT WO CLINICAL HISTORY: PAIN, INTERNAL DERANGEMENT LT KNEE, M23.92. TECHNIQUE: Multiplanar multisequence MRI was performed. COMPARISON: CR XR KNEE LT 3V AP,LAT,FADY from 08/12/2024 FINDINGS: BONES: There is no fracture or contusion pattern. JOINTS: A small joint effusion is present. Articular cartilage: Patellofemoral joint: Articular minimal patellar cartilage irregularity laterally. Lateral patellar tilt. Medial femoral tibial joint: Articular cartilage is unremarkable. Lateral femoral tibial joint: Articular cartilage is unremarkable. LIGAMENTS/TENDONS: Anterior Cruciate: Unremarkable. Posterior Cruciate: Unremarkable. Medial Collateral:On some high signal around the femoral attachment of the medial collateral ligament but no visible focal tear. Lateral Collateral ligament complex: Unremarkable. Extensor mechanism: Unremarkable. Medial retinaculum: Unremarkable. Lateral retinaculum: Unremarkable. Popliteus: Unremarkable. MENISCI: The medial meniscus is unremarkable. The lateral meniscus is unremarkable. MUSCLES: Unremarkable. SOFT TISSUES: 2.2 by 8 high 2 centimeter multiloculated synovial cyst or ganglion posterior to the la teral femoral condyle. IMPRESSION: Medial collateral ligament sprain at the femoral attachment. Synovial cyst versus ganglion posterior to the lateral femoral condyle. DATA REPOSITORY:
== END 2024-08-20 01:26 ==
LOC: DI 01:06
PROVIDERS: PCP Nurse Practitioner Family; Visit Provider Student in an Organized Health Care Education/Training Program
DX: S83.411A Sprain of medial collateral ligament of right knee, initial encounter (principal); X58.XXXA Exposure to other specified factors, initial encounter
CPT/HCPCS: 73721

== ENCOUNTER 2024-10-13 13:36 | Outpatient (REF) | payer BC, SELFPAY ==
[2024-10-13 13:42] LABS: Bilirubin Negative (Negative); Blood Trace-intact (Negative); Clarity Clear (Clear); Glucose Negative (Negative); Ketones Negative (Negative); Leukocyte Esterase Trace (Negative); Nitrite Negative (Negative); Urobilinogen 0.2 mg/dL (Up to 0.2); pH 5.5 (5-8)
[2024-10-13 14:08] LABS: Bacteria Moderate HPF (Negative); C & S Indicated? Yes; Casts Negative LPF (Negative); Crystals Negative HPF (Negative); Epithelial Cells Few HPF (Negative); Mucus Negative (Negative); RBC 0-2 HPF (0-2)
== END 2024-10-13 13:37 | disposition home or self-care (01) ==
LOC: NCHCN 13:36
PROVIDERS: PCP Nurse Practitioner Family; Visit Provider Nurse Practitioner Family
DX: R39.15 Urgency of urination (principal)
CPT/HCPCS: 87077; 81003; 81015; 87086; 87186